=== PATIENT | female | born 1960 | race Caucasian/White ===

== ENCOUNTER 2018-06-27 11:25 | Emergency (ER) | payer OTHER ==
[~2018-06-27] VITALS: Ht 157.5 cm; Wt 70.3 kg
[2018-06-27] MEDS ORDERED: LEXAPRO20 MG (11:41)
== END 2018-06-27 15:24 | disposition home or self-care (01) ==
LOC: ER 11:25
DX: B34.9 Viral infection, unspecified (principal)